=== PATIENT | female | born 1965 | race Caucasian/White ===

== ENCOUNTER 2017-05-09 06:37 | Day surgery (SDC) | payer OTHER ==
[2017-05-02 12:52] LABS: APPEARANCE,URINE SLIGHTLY-CLOUDY; BILIRUBIN,URINE NEGATIVE (NEGATIVE); COLOR,URINE YELLOW; GLUCOSE, URINE >=500 mg/dL (NEGATIVE); KETONES,URINE NEGATIVE (NEGATIVE); LEUKOCYTE ESTERASE,URINE NEGATIVE (NEGATIVE); NITRITE,URINE NEGATIVE (NEGATIVE); PROTEIN,URINE NEGATIVE (NEGATIVE); URINE SPECIFIC GRAVITY 1.014; UROBILINOGEN,URINE NEGATIVE mg/dL (<2.0)
[2017-05-02 13:01] LABS: ABSOLUTE BASOPHILS # (AUTO) 0.1 10^3/uL (0.0-0.2); ABSOLUTE EOSINOPHILS # (AUTO) 0.4 10^3/uL (0.0-0.6); ABSOLUTE LYMPHOCYTES (AUTO) 3.6 10^3/uL (0.5-4.7); ABSOLUTE MONOCYTES (AUTO) 0.7 10^3/uL (0.1-1.4); ABSOLUTE NEUT (AUTO) 5.7 10^3/uL (1.7-8.2); BASOPHILS % (AUTO) 1.1 % (0-2); EOSINOPHILS % (AUTO) 3.6 % (0-6); HEMATOCRIT 42.9 % (36.0-47.0); HEMOGLOBIN 14.3 g/dL (12.0-15.5); LYMPHOCYTES % (AUTO) 34.6 % (13-45); MEAN CORPUSCULAR HEMOGLOBIN 29.9 pg (27.0-33.4); MEAN CORPUSCULAR HGB CONC 33.4 g/dL (32.0-36.0); MEAN CORPUSCULAR VOLUME 89 fl (80-97); MONOCYTES % (AUTO) 6.5 % (3-13); RED BLOOD COUNT 4.81 10^6/uL (3.72-5.28); RED CELL DISTRIBUTION WIDTH 13.8 % (11.5-14.0); SEGMENTED NEUTROPHILS % (AUTO) 54.2 % (42-78); TOTAL CELLS COUNTED % (AUTO) 100 %; WHITE BLOOD COUNT 10.5 10^3/uL (4.0-10.5)
[2017-05-02 13:20] LABS: ANION GAP 9 (5-19); BLOOD UREA NITROGEN 14 mg/dL (7-20); CALCIUM 9.7 mg/dL (8.4-10.2); CARBON DIOXIDE 30 mmol/L (22-30); CHLORIDE 101 mmol/L (98-107); GLUCOSE 76 mg/dL (75-110); POTASSIUM 4.4 mmol/L (3.6-5.0); SODIUM 139.6 mmol/L (137-145)
[2017-05-02 14:01] LABS: PLATELET COUNT 243 10^3/uL (150-450)
--- NOTE | 2017-05-03 09:01 | EKG REPORT ---
SEVERITY:- ABNORMAL ECG - SINUS RHYTHM CONSIDER ANTEROSEPTAL INFARCT : Confirmed by: Brien Yun 03-May-2017 09:00:20
[~2017-05-09 06:37] MED LIST: CLINDAMYCIN 600 MG/D5W RTU 600 MG/50 ML RTUPB IV PRN; LACTATED RINGERS 1000 ML IV PRN; LIDOCAINE 0.5% INJ-PF (5 MG/ML) 50 ML SDV SUBCUT PRN
[2017-05-09] MEDS ORDERED: LIDOCAINE 1% INJ-PF (10 MG/ML) 30 ML SDV ONE (07:16)
[2017-05-09] MEDS ORDERED: BUPIVACAINE HCL 0.5 % INJ/PF 30 ML SDV ONE (07:16)
--- NOTE | 2017-05-09 08:17 | RADIOLOGY REPORT (SQ) ---
EXAM DESCRIPTION: CHEST SINGLE VIEW COMPLETED DATE/TIME: 05/09/2017 7:08 am REASON FOR STUDY: Pre Op ASU 3 COMPARISON: None. EXAM PARAMETERS: NUMBER OF VIEWS: One view. TECHNIQUE: Single frontal radiographic view of the chest acquired. RADIATION DOSE: NA LIMITATIONS: None. FINDINGS: LUNGS AND PLEURA: No opacities, masses or pneumothorax. No pleural effusion. MEDIASTINUM AND HILAR STRUCTURES: No masses. Contour normal. HEART AND VASCULAR STRUCTURES: Heart normal in size. Normal vasculature. BONES: No acute findings. HARDWARE: None in the chest. OTHER: No other significant finding. IMPRESSION: NO ACUTE RADIOGRAPHIC FINDING IN THE CHEST. TECHNICAL DOCUMENTATION: JOB ID: [id number] [employer]- All Rights Reserved Reading location - IP/workstation name: [email or web address]
[2017-05-09] MEDS ORDERED: LIDOCAINE 2% INJ-PF (20 MG/ML) 10 ML AMPUL ONE (08:31)
[2017-05-09] MEDS ORDERED: MIDAZOLAM 2 MG/2 ML INJ ONE (08:32)
[2017-05-09] MEDS ORDERED: ONDANSETRON HCL INJ/PF 4 MG/2 ML SDV ONE (08:32)
[2017-05-09] MEDS ORDERED: DEXAMETHASONE SOD PHOSPHATE INJ 4 MG/1 ML VIAL ONE (08:32)
[2017-05-09] MEDS ORDERED: FENTANYL CITRATE INJ/PF 100 MCG/2 ML AMPUL ONE ×2 (08:32→10:51)
[2017-05-09] MEDS ORDERED: PROPOFOL INJ 200 MG/20 ML VIAL IV ONE (08:33)
[2017-05-09] MEDS ORDERED: ACETAMINOPHEN 100 ML IV ONE ×2 (08:33→08:34)
[2017-05-09] MEDS ORDERED: MORPHINE SULFATE 10 MG/ML INJ IV PRN ×2 (09:23→10:27)
[2017-05-09] MEDS ORDERED: FENTANYL CITRATE INJ/PF 100 MCG/2 ML AMPUL IV PRN ×3 (09:23)
[2017-05-09] MEDS ORDERED: MEPERIDINE HCL/PF INJ 25 MG/1 ML DISP.SYRIN IV PRN (09:23)
[2017-05-09] MEDS ORDERED: DIPHENHYDRAMINE HCL 50 MG/ML VIAL IV PRN (09:23)
[2017-05-09] MEDS ORDERED: ONDANSETRON HCL INJ/PF 4 MG/2 ML SDV IV PRN ×2 (09:23→10:27)
[2017-05-09] MEDS ORDERED: OXYCODONE-ACETAMINOPHEN 5-325 MG TABLET PO PRN ×3 (09:23→10:27)
[2017-05-09] MEDS ORDERED: PROMETHAZINE HCL INJ 25 MG/1 ML VIAL IV PRN ×2 (09:23)
[2017-05-09] MEDS ORDERED: RINGERS SOLUTION,LACTATED 1,000 ML IV PRN (10:27)
--- NOTE | 2017-05-09 10:34 | Discharge Summary ---
Discharge Summary (SDC) - Discharge Final Diagnosis: Recurrent carpal tunnel syndrome Date of Surgery: 05/09/17 Discharge Date: 05/09/17 Condition: Good Treatment or Instructions: Schedule Follow Up w/ Dr. Jevon oBateng @ [facility] for Surgery to be seen in 10-14 days or as scheduled [place]: [place]: [place]: Ice and elevate Keep splint clean/dry/intact. If your fingers become numb please unwrap the Jeffrey wrap but leave the splint in place, if the sensation does not return within 30 minutes please return to the emergency department. May begin finger range of motion attempting to make full fist. Please use ibuprofen (Motrin or Advil) 600-800 mg every 8 hours as needed for pain or fever DO NOT TAKE w/ TORADOL may use once TORADOL complete. You may also use acetaminophen (Tylenol) 1000 mg every 4-6 hours as needed for pain or fever. Please be aware that many medications contain acetaminophen, do not exceed a total of 1000 mg of acetaminophen every 6 hours. If ibuprofen and acetaminophen are not sufficient for your pain you may take the Percocet/Mancos. Please be aware that the Percocet/Mancos does contain Tylenol. Stool softener of choice when on pain medication. Prescriptions: Oxycodone HCl/Acetaminophen [Percocet 5-325 mg Tablet] 1 - 2 tab PO ASDIR PRN # 35 tablet PRN Reason: Referrals: HARESH LUNA MD [Primary Care Provider] - Discharge Diet: As Tolerated Respiratory Treatments at Home: Deep Breathing/Coughing Discharge Activity: No Lifting Over 10 Pounds, No Lifting/Push/Pulling Report the Following to Your Physician Immediately: Fever over 101 Degrees, Unusual Bleeding, Redness, Swelling, Warmth, Increased Soreness
--- NOTE | 2017-05-09 10:46 | Operative Report ---
Operative Report DATE OF SURGERY: 05/09/17 PREOPERATIVE DIAGNOSIS: Right Recurrent Carpal Tunnel Syndrome POSTOPERATIVE DIAGNOSIS: Same. 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 Right Revision Carpal Tunnel Release w/ Hypothenar Fat Pad Transfer Placement of Axogen Nerve Wrap. 2. Right median nerve neurolysis with pronator release SURGEON: ROBERTH OSORIO 1ST TRADE SHOW COORDINATOR: JULIO C HARRISON - Required for retraction given the complexity of revision procedure ANESTHESIA: GA COMPLICATIONS: None ESTIMATED BLOOD LOSS: Minimal PROCEDURE: Indication for above procedure: 51-year-old female with long-standing history of diabetes and polyneuropathy. Patient underwent carpal tunnel release approximately 10 years ago. Subsequently she developed return of her numbness and tingling and underwent revision carpal tunnel release in 2013. After that surgical procedure patient states she continues to have numbness and tingling. Neurodiagnostic testing was done demonstrating worsening of patient's symptoms. At that point we discussed treatment options including operative versus nonoperative intervention. Specifically preoperatively we discussed revision carpal tunnel release with possible proximal pronator release depending on intraoperative findings. After discussing these treatment options the decision was made to proceed with operative intervention. Procedure In Detail: Patient was seen and evaluated in the preoperative holding area. The RIGHT upper extremity was initialized and marked. Patient received 2g of Ancef IV for bacterial prophylaxis. Patient was taken back to the operative room where transferred to the operative table and placed under general anesthesia. Once they were adequately anesthetized a nonsterile tourniquet was placed on the upper extremity. A surgical team debriefing was performed ensuring all instrumentation was available, the surgical procedure was discussed with possible concerns reviewed. The upper extremity was prepped with chlorhexidine and alcohol and draped in a sterile fashion. A timeout was done identifying correct patient, procedure and extremity everyone in attendance agree with this and verbalized no concerns. The extremity was exsanguinated the tourniquet was inflated to 250 mmHg. Curvilinear skin incision was made incorporating the previous carpal tunnel incision and extending proximally along the wrist flexion crease. The median nerve was identified proximally and normal tissue. The volar antebrachial fascia was then released freeing up any proximal nerve compression at this level. I then bluntly dissected in a distal direction the palmar cutaneous branch of the median nerve was identified and protected. Upon approaching the previous carpal tunnel surgical site scar tissue was evident with significant compression at the wrist flexion crease. This tissue was then incised carefully protecting the median nerve beneath with a Winchester elevator. The median nerve was released from the overlying scar tissue and palmar fascia just proximal to Argueta's cardinal line at the level of the adipose. I then proceeded with epineural neuro lysis freeing any scar tissue from the median nerve. The motor branch and common digital nerve branches were identified and freed from any remaining compression. Once adequate release of the median nerve was confirmed proceeded with hypo-thenar fat pad transfer. At the ulnar aspect of the incision the adipose was released from the subcutaneous layer leaving a small layer of adipose to avoid devascularization of the skin. This was released to the insertion point of the palmaris brevis musculature. Dissection was then continued in a deep direction freeing any fascial attachments to the palmaris brevis and fat pad. At this point proximally the ulnar nerve and artery were identified and distally the digital branches of the ulnar nerve identified and protected. The fat pad continued to be freed from any overlying soft tissue to allow adequate excursion for protection of the median nerve. A small branch of the ulnar artery was coagulated with bipolar cautery to allow further excursion. Once adequate excursion was confirmed I carefully released the fat pad from the ulnar leaflet of the transverse carpal ligament which was excised. The wound was then copiously irrigated with normal saline. On the back table a Axogen 10 mm x 40 mm nerve protector was opened and placed in saline. Axogen nerve protector was placed at the level of the wrist flexion crease where the most significant compression was evident. My executive administrative assistant held the nerve wrap into 3 horizontal mattress sutures were placed. With the use of my executive administrative assistant the median nerve was then retracted in a ulnar direction and the fat pad was secured to the undersurface of the radial transverse carpal ligament with horizontal mattress 3-0 Vicryl suture. Upon tying the fat pad my executive administrative assistant placed a Winchester elevator between the nerve and the fat pad to avoid inadvertent compression. Any peripheral bleeding was coagulated bipolar cautery. Wound was copiously irrigated with normal saline and then turned my attention to the pronator release. Curvilinear skin incision was made just distal to the antecubital fossa was and extended along the course of the pronator teres. Blunt dissection was performed through the soft tissue and a small cutaneous nerves were branch of the medial antebrachial cutaneous nerve was identified and protected. The antecubital vein and brachial artery were identified and retracted. Proximally the lacertus fibrosis was released and the median nerve was identified deep at this level. Superficial head of the printer was then identified just radial to the radial vessels. At this level of the superficial and deep heads of the pronator were causing significant compression at this level with hourglassing noted. Once released the median and AIN nerves were identified. I continue neuro lysis distally and released the proximal portion of the FDS arch. Finger was then run along the median nerve proximally and distally to ensure adequately release. Any bleeding was controlled with bipolar cautery. Wound was then copiously irrigated with normal saline. Subcutaneous tissues closed with interrupted 4-0 Monocryl suture. Skin was closed with running horizontal mattress 3-0 nylon suture. 30 cc of 0.5% Marcaine with epinephrine was injected for postoperative pain control. Wound was dressed with Xeroform 4 x 4's and patient was placed in a volar wrist splint. Sponge counts, instrument counts, needle counts counts were correct. Patient was then awoken from anesthesia. Transferred from the operating room table to the operating room stretcher. There was no intraoperative complications patient tolerated procedure well stable to PACU. Postoperative plan: Patient will follow-up the office in 2 weeks for recheck and suture removal. Will begin gentle range of motion exercises at that time.
[2017-05-09 12:43] VITALS: BP 116/64
== END 2017-05-09 12:49 | disposition home or self-care (01) ==
LOC: OROUT 06:37
PROVIDERS: ATTEND Orthopaedic Surgery
PROC: 01N50ZZ Release Median Nerve, Open Approach (ICD-10-PCS; principal; 2017-05-09 08:30)
DX: G56.01 Carpal tunnel syndrome, right upper limb (principal); G56.11 Other lesions of median nerve, right upper limb; Z96.41 Presence of insulin pump (external) (internal); E78.5 Hyperlipidemia, unspecified; I10 Essential (primary) hypertension; E10.9 Type 1 diabetes mellitus without complications; G47.33 Obstructive sleep apnea (adult) (pediatric); Z86.14 Personal history of Methicillin resistant Staphylococcus aureus infection; Z88.0 Allergy status to penicillin; Z88.1 Allergy status to other antibiotic agents; Z88.2 Allergy status to sulfonamides; Z79.4 Long term (current) use of insulin; Z79.899 Other long term (current) drug therapy
CPT/HCPCS: 93005; 36415; 82962; 85025; 80048; 81001; 83036; 71045; 93010; 64721; 14040; 64999; J2250; J3490 ×2; J1100; J3010; J2405; J2704; J0131; 1810